=== PATIENT | female | born 1950 | race Caucasian/White ===

== ENCOUNTER 2018-05-08 09:57 | Day surgery (SDC) | payer BC ==
[2018-05-08 10:14] VITALS: BMI 23.1
[2018-05-08 11:01] LABS: BASO # 0.1 K/uL (0.0-0.2); EOS # 0.4 K/uL (0.0-0.7); EOS % 6.1 % (0.0-4.0); LYMPH # 2.6 K/uL (1.0-4.3); LYMPH % 38.3 % (20.0-40.0); MEAN CELL VOLUME 94.6 fL (81.0-99.0); MEAN CORPUSCULAR HGB CONC 33.8 g/dL (33.0-37.0); MEAN PLATELET VOLUME 10.4 fL (7.2-11.7); MONO # 0.4 K/uL (0.0-0.8); MONO % 5.5 % (0.0-10.0); NEUT # 3.3 K/uL (1.8-7.0); NEUT % 49.1 % (50.0-75.0); NRBC % 0.1 % (0.0-2.0); RBC 4.38 Mil/uL (3.80-5.20); RED CELL DISTRIBUTION WIDTH 13.2 % (11.5-14.5); WHITE BLOOD COUNT 6.8 K/uL (4.8-10.8)
[2018-05-08 11:12] LABS: INR 1.1; PROTHROMBIN TIME 12.1 SECONDS (9.7-12.2)
[2018-05-08 11:31] LABS: BLOOD UREA NITROGEN 12 mg/dL (7-17); CALCIUM 9.3 mg/dl (8.6-10.4); GFR NON-AFRICAN AMERICAN > 60
[2018-05-08] MEDS ORDERED: Midazolam 2 MG/2 ML VIAL ONE (11:43)
[2018-05-08] MEDS ORDERED: Propofol 10 mg/ml Inj (20 ML) ONE (11:43)
[2018-05-08] MEDS ORDERED: Absorbable Gelatin Sponge Size 12-7 ONE (11:47)
[2018-05-08] MEDS ORDERED: Lidocaine Hydrochloride 5 ML INJ ONE (11:47)
--- NOTE | 2018-05-08 11:52 | CP.SDSHP ---
Same Day Surgery H & P - History Proposed Procedure: US guided liver biopsy Pre-Op Diagnosis: Abnormal LFTs - Allergies Allergies: Allergies No Known Allergies Allergy (Verified 06/26/14 12:35) - Impression Impression: PT with abnormal LFTs referred for biopsy. Plan US guided left liver biopsy. Pt. Evaluated Today:Candidate for Anesthesia & Procedure: Yes (ASA 2 Malampati 2) - Date & Time Date: 05/08/18 Time: 11:35 Short Stay Discharge - Short Stay Discharge Admitting Diagnosis/Reason for Visit: PRIMARY BILIARY CIRRHOSIS//ABNORMAL LEVELS OF OTHE Disposition: HOME/ ROUTINE
--- NOTE | 2018-05-08 11:56 | PCM.SURG1 ---
Surgeon's Initial Post Op Note - Surgeon's Notes Surgeon: Enio May MD Boiler Out: NOne Type of Anesthesia: IV Sedation Pre-Operative Diagnosis: Abnormal LFTs Operative Findings: US showed unremarkable liver Post-Operative Diagnosis: Abnormal LFTs Operation Performed: US guided liver biopsy Specimen/Specimens Removed: 18 g core x 3 Estimated Blood Loss: EBL {In ML}: 2 Blood Products Given: N/A Drains Used: No Drains Post-Op Condition: Good Date of Surgery/Procedure: 05/08/18 Time of Surgery/Procedure: 11:50
--- NOTE | 2018-05-09 13:55 | US ---
PROCEDURE: Date of procedure: 05/08/2018 Procedure: 1. Ultrasound-guided core liver biopsy, CPT 45477 2. Ultrasound guidance for biopsy, 41136 Medications: The patient is sedated by the anesthesiologist. HISTORY: Abnormal LFTs TECHNIQUE: Following informed consent and procedure time-out, the patient was placed supine on bed and limited ultrasound showed a normal appearing left hepatic lobe. After patient abdomen was prepped and draped in the usual sterile fashion and the skin was anesthetized with 2% lidocaine, an 18 gauge core needle was advanced percutaneously under direct ultrasound guidance into the left hepatic lobe. Upon confirmation of needle position, three 18 gauge core specimens were obtained and sent for routine pathology. The biopsy to tract was then embolized with Gelfoam. A post biopsy ultrasound showed no hematoma. A dressing was applied. IMPRESSION: Ultrasound-guided core biopsy left hepatic lobe. There were no immediate complications.
--- NOTE | 2018-05-09 19:32 | CARD ---
APPROVED REPORT Date of service: 05/08/2018 EKG Measurement Heart [id number] CO [id number] <Conclusion> Normal sinus rhythm Normal ECG
== END 2018-05-08 14:30 | disposition home or self-care (01) ==
LOC: C.SPRAD 09:57
PROVIDERS: ATTEND Radiology Vascular & Interventional Radiology
DX: K74.3 Primary biliary cirrhosis (principal); R74.8 Abnormal levels of other serum enzymes; R79.89 Other specified abnormal findings of blood chemistry; R94.5 Abnormal results of liver function studies
CPT/HCPCS: 10022; 36415; 47000; 76942; 80048; 85025; 85610; 85730; 88307; 88313; 93005; J2250; J3010